=== PATIENT | female | born 1955 | race Caucasian/White ===

== ENCOUNTER 2024-01-13 06:25 | Inpatient (IN) | payer OTHER, MEDICARE ==
[2024-01-13] MEDS ORDERED: ACETAMINOPHEN INJECTION 100 ML IVPB ONE (07:34)
[2024-01-13] MEDS: ACETAMINOPHEN 1000 MG/100 ML BAG IVPB ONE (08:00)
[2024-01-13] MEDS ORDERED: morphine SULFATE 4 MG/ML VIAL ONE ×2 (08:02→09:38)
[2024-01-13] MEDS: morphine CARPU-JECT 4 MG/1 ML DISP.SYRIN IVPUSH ONE ×2 (08:05→09:56)
[2024-01-13 08:21] LABS: INR 0.99 (0.83-1.09); PROTHROMBIN TIME (PATIENT) 11.5 SEC (9.7-13.0)
[2024-01-13 08:24] LABS: ACTIVATED PTT 21.9 SECONDS (25.2-36.5)
[2024-01-13 08:32] LABS: BASO % 0.4 % (0-2.0); EOS % 0.1 % (0-4.5); HEMATOCRIT 33.9 % (32.4-45.2); HEMOGLOBIN 12.1 GM/dL (10.7-15.3); LYMPH % 15.9 % (8-40); MCHC 35.8 g/dl (32.0-36.0); MEAN CELL VOLUME 94.9 fl (80-96); MONO % 8.5 % (3.8-10.2); NEUT % 75.1 % (42.8-82.8); PLATELET COUNT 127 10^3/uL (134-434); RBC 3.57 M/mm3 (3.60-5.2); RDW 13.8 % (11.6-15.6)
[2024-01-13 08:33] LABS: CHLORIDE 84 mmol/L (98-107); POTASSIUM 4.5 mmol/L (3.5-5.1)
[2024-01-13 08:35] LABS: CALCIUM 8.8 mg/dL (8.5-10.1)
[2024-01-13 08:36] LABS: ALBUMIN 3.3 g/dl (3.4-5.0); BLOOD UREA NITROGEN 7.7 mg/dL (7-18); CO2 24 mmol/L (21-32); GLUCOSE,RANDOM 112 mg/dL (74-106); MAGNESIUM 1.3 mg/dL (1.8-2.4)
[2024-01-13 08:38] LABS: CREATININE 0.9 mg/dL (0.55-1.3)
[2024-01-13 08:39] LABS: PHOSPHOROUS 3.2 mg/dL (2.5-4.9); SGOT/AST 29 U/L (15-37); SGPT/ALT 32 U/L (13-61)
[2024-01-13 08:40] LABS: BILIRUBIN,TOTAL 1.1 mg/dL (0.2-1); TOT PROT 6.5 g/dl (6.4-8.2)
[2024-01-13 08:41] LABS: ALK PHOS 101 U/L (45-117)
[2024-01-13 08:42] LABS: N-TERMINAL BNP 284.7 pg/ml (5-125)
[2024-01-13 09:01] LABS: ANION GAP 11 mmol/L (4-13); SODIUM 119 mmol/L (136-145)
[2024-01-13] MEDS ORDERED: VANCOMYCIN 1 GRAM (PRE-DOCKED) 1,000 MG/250 ML BAG IVPB ONE (09:26)
[2024-01-13] MEDS ORDERED: PIPERACILLIN/TAZOB 4.5 GM 4.5 GM/100 ML BAG IVPB ONE (09:26)
[2024-01-13] MEDS ORDERED: DIPHTH,PERTUSS(ACELL),TET 0.5 ML DISP.SYRIN IM ONE (09:47)
[2024-01-13] MEDS ORDERED: MAGNESIUM 1GM/D5W - 1 GM/100 ML IVPB IVPB ONE (09:47)
[2024-01-13] MEDS: DIPHTH,PERTUSS(ACELL),TET 0.5 ML DISP.SYRIN IM ONE (09:57)
[2024-01-13] MEDS: PIPERACILLIN/TAZOB 4.5 GM 4.5 GM in DEXTROSE 5%-WATER 100 ML IVPB ONE (09:57)
[2024-01-13 10:17] LABS: ERYTHROCYTE SEDIMENTATION RATE 7 mm/hr (0-30)
[2024-01-13] MEDS: MAGNESIUM SULFATE IN WATER 2 GM/50 ML IVPB IVPB ONE (10:17)
[2024-01-13] MEDS: SODIUM CHLORIDE 1,000 ML IV SCH (11:26)
[2024-01-13] MEDS: VANCOMYCIN 1,000 MG in DEXTROSE 5%-WATER - 250 ML IVPB ONE (11:26)
[2024-01-13] MEDS ORDERED: CLINDAMYCIN 600MG PREMIX IVPB 600 MG/50 ML BAG IVPB ONE (13:42)
[2024-01-13 14:03] LABS: POTASSIUM 4.6 mmol/L (3.5-5.1)
[2024-01-13 14:04] LABS: CALCIUM 8.5 mg/dL (8.5-10.1)
[2024-01-13 14:05] LABS: BLOOD UREA NITROGEN 8.2 mg/dL (7-18)
[2024-01-13 14:08] LABS: CREATININE 0.8 mg/dL (0.55-1.3)
[2024-01-13] MEDS: CLINDAMYCIN 600MG PREMIX IVPB 600 MG/50 ML BAG IVPB ONE (14:33)
[2024-01-13] MEDS ORDERED: PIPERACILLIN/TAZOB 3.375 GM 3.375 GM/50 ML BAG IVPB ONE (17:56)
[2024-01-13] MEDS: PIPERACILLIN/TAZOB 3.375 GM 3.375 GM in DEXTROSE 5%-WATER - 50 ML IVPB SCH (18:02)
[2024-01-13] MEDS ORDERED: KETOROLAC TROMETHAMINE 15 MG/ML VIAL ONE (19:20)
[2024-01-13] MEDS: KETOROLAC TROMETHAMINE 15 MG/ML VIAL IVPUSH PRN (19:25)
[2024-01-13 19:45] LABS: POTASSIUM 4.1 mmol/L (3.5-5.1)
[2024-01-13 19:46] LABS: CALCIUM 8.1 mg/dL (8.5-10.1)
[2024-01-13 19:50] LABS: CREATININE 0.8 mg/dL (0.55-1.3)
[2024-01-13] MEDS: ATORVASTATIN CA 10 MG TABLET (FP) PO SCH (21:33)
[2024-01-13] MEDS: MIRTAZAPINE 15 MG TABLET (FP) PO SCH (21:33)
[2024-01-13] MEDS: ACETAMINOPHEN 500 MG TABLET (FP) PO PRN (21:34)
[2024-01-13] MEDS: HEPARIN NA (PORCINE) 5,000 UNITS/ML 1ML VIAL SQ SCH (21:34)
[2024-01-13] MEDS: METOPROLOL TARTRATE 50 MG TABLET (FP) PO SCH (21:34)
[2024-01-13] MEDS: MOMETASONE FUROATE 220 MCG/IH INHALER IH SCH (22:55)
[2024-01-13] MEDS ORDERED: VANCOMYCIN 1,000 MG in DEXTROSE 5%-WATER - 250 ML IVPB SCH (23:00)
[2024-01-13] MEDS: VANCOMYCIN/WATER FOR INJ (PEG) 1,000 MG/200 ML BAG IVPB SCH (23:35)
[2024-01-14 00:48] VITALS: BMI 42.8
[2024-01-14 09:39] LABS: BASO % 0.4 % (0-2.0); EOS % 0.6 % (0-4.5); HEMATOCRIT 31.8 % (32.4-45.2); HEMOGLOBIN 11.2 GM/dL (10.7-15.3); LYMPH % 17.8 % (8-40); MCH 33.7 pg (25.7-33.7); MCHC 35.1 g/dl (32.0-36.0); MEAN CELL VOLUME 96.1 fl (80-96); MEAN PLT VOLUME 7.9 fl (7.5-11.1); MONO % 5.2 % (3.8-10.2); PLATELET COUNT 85 10^3/uL (134-434); RBC 3.31 M/mm3 (3.60-5.2); RDW 13.7 % (11.6-15.6); WHITE BLOOD COUNT 6.5 K/mm3 (4.0-10.0)
[2024-01-14 10:03] LABS: CALCIUM 7.8 mg/dL (8.5-10.1)
[2024-01-14 10:04] LABS: BLOOD UREA NITROGEN 9.4 mg/dL (7-18)
[2024-01-14 10:06] LABS: URIC ACID 4.4 mg/dL (2.6-7.2)
[2024-01-14 10:07] LABS: CREATININE 0.8 mg/dL (0.55-1.3)
[2024-01-14] MEDS: PIPERACILLIN/TAZOB 3.375 GM 3.375 GM in DEXTROSE 5%-WATER - 50 ML IVPB SCH ×2 (10:25→14:14)
[2024-01-14] MEDS: PANTOPRAZOLE 20 MG TABLET PO SCH (10:26)
[2024-01-14] MEDS: EZETIMIBE 10 MG TABLET (FP) PO SCH (10:26)
[2024-01-14] MEDS: clonazePAM 0.25 MG ODT TABLETS SL PRN (13:00)
[2024-01-14] MEDS: HEPARIN NA (PORCINE) 5,000 UNITS/ML 1ML VIAL SQ SCH (13:45)
[2024-01-14] MEDS: VANCOMYCIN 1,000 MG in DEXTROSE 5%-WATER - 250 ML IVPB SCH (14:14)
[2024-01-14] MEDS: PATIENT'S OWN MEDICATION (NON-FORMULARY) (Olmesartan Medoxomil [Olmesartan Medoxomil] 5 MG PO SCH (14:15)
[2024-01-14] MEDS: LOSARTAN POTASSIUM 25 MG TABLET PO SCH (15:09)
[2024-01-14] MEDS: NYSTATIN POWDER 100,000 UNITS/GM - 15 GM TOPICAL POWDER TP SCH (15:50)
[2024-01-14] MEDS: CALCIUM (OYSTER SHELL) 500 MG TABLET (FP) PO SCH (15:50)
[2024-01-14] MEDS: METOPROLOL TARTRATE 50 MG TABLET (FP) PO SCH (22:03)
[2024-01-14] MEDS: ATORVASTATIN CA 10 MG TABLET (FP) PO SCH (22:04)
[2024-01-15 10:53] LABS: BASO % 0.5 % (0-2.0); EOS % 0.6 % (0-4.5); HEMATOCRIT 28.2 % (32.4-45.2); HEMOGLOBIN 9.7 GM/dL (10.7-15.3); LYMPH % 19.5 % (8-40); MCH 33.1 pg (25.7-33.7); MCHC 34.4 g/dl (32.0-36.0); MEAN CELL VOLUME 96.4 fl (80-96); MEAN PLT VOLUME 7.8 fl (7.5-11.1); NEUT % 72.4 % (42.8-82.8); PLATELET COUNT 86 10^3/uL (134-434); RBC 2.93 M/mm3 (3.60-5.2); RDW 13.5 % (11.6-15.6); WHITE BLOOD COUNT 5.1 K/mm3 (4.0-10.0)
[2024-01-15 11:04] LABS: INR 1.02 (0.83-1.09); PROTHROMBIN TIME (PATIENT) 11.8 SEC (9.7-13.0)
[2024-01-15 11:14] LABS: POTASSIUM 3.8 mmol/L (3.5-5.1)
[2024-01-15 11:21] LABS: CALCIUM 7.9 mg/dL (8.5-10.1); MAGNESIUM 1.9 mg/dL (1.8-2.4)
[2024-01-15 11:22] LABS: BLOOD UREA NITROGEN 8.6 mg/dL (7-18)
[2024-01-15 11:24] LABS: CREATININE 0.8 mg/dL (0.55-1.3)
[2024-01-15 11:26] LABS: BILIRUBIN,TOTAL 0.9 mg/dL (0.2-1); TOT PROT 5.3 g/dl (6.4-8.2)
[2024-01-15 11:28] LABS: ALBUMIN 2.6 g/dl (3.4-5.0)
[2024-01-15 11:36] LABS: CHOLESTEROL 127 mg/dL (50-200)
[2024-01-15 11:37] LABS: LDL CHOLESTEROL (ONLY SJRH) 28 mg/dL (5-100)
[2024-01-15 11:39] LABS: HDL CHOLESTEROL 91 mg/dL (40-60)
[2024-01-16 08:33] LABS: BASO % 0.6 % (0-2.0); EOS % 0.8 % (0-4.5); HEMATOCRIT 24.8 % (32.4-45.2); HEMOGLOBIN 8.7 GM/dL (10.7-15.3); LYMPH % 34.2 % (8-40); MCH 33.8 pg (25.7-33.7); MEAN CELL VOLUME 96.6 fl (80-96); MEAN PLT VOLUME 7.8 fl (7.5-11.1); MONO % 9.8 % (3.8-10.2); NEUT % 54.6 % (42.8-82.8); PLATELET COUNT 98 10^3/uL (134-434); RBC 2.57 M/mm3 (3.60-5.2); RDW 13.9 % (11.6-15.6); WHITE BLOOD COUNT 5.5 K/mm3 (4.0-10.0)
[2024-01-16 09:04] LABS: POTASSIUM 3.7 mmol/L (3.5-5.1)
[2024-01-16 09:13] LABS: ALBUMIN 2.4 g/dl (3.4-5.0); CALCIUM 7.9 mg/dL (8.5-10.1)
[2024-01-16 09:14] LABS: BLOOD UREA NITROGEN 7.1 mg/dL (7-18); MAGNESIUM 1.7 mg/dL (1.8-2.4)
[2024-01-16 09:17] LABS: CREATININE 0.8 mg/dL (0.55-1.3)
[2024-01-16 09:18] LABS: BILIRUBIN,TOTAL 0.8 mg/dL (0.2-1); TOT PROT 4.8 g/dl (6.4-8.2)
[2024-01-16] MEDS ORDERED: LIDOCAINE HCL 1%, 10 MG/ML (20ML VIAL) ONE (12:47)
[2024-01-16] MEDS: MAGNESIUM OXIDE 400 MG TABLET (FP) PO ONE (13:52)
[2024-01-16] MEDS ORDERED: PROPOFOL 20 ML ONE ×2 (16:50→17:16)
[2024-01-16] MEDS: ceFAZolin SODIUM 1 GM VIAL IVPB ONE (17:00)
[2024-01-16] MEDS ORDERED: ceFAZolin SODIUM 1 GM VIAL ONE (17:00)
[2024-01-16] MEDS ORDERED: MIDAZOLAM HCL 2 MG/2 ML SINGLE DOSE VIAL ONE (17:00)
[2024-01-16] MEDS ORDERED: ONDANSETRON 4 MG/2 ML VIAL IVPUSH PRN (17:32)
[2024-01-16] MEDS ORDERED: KETOROLAC TROMETHAMINE 30 MG/1 ML VIAL ONE (17:51)
[2024-01-16] MEDS: KETOROLAC TROMETHAMINE 30 MG/1 ML VIAL IVPUSH ONE (17:52)
[2024-01-16] MEDS ORDERED: ACETAMINOPHEN INJECTION 100 ML IVPB ONE (17:56)
[2024-01-16] MEDS: ACETAMINOPHEN 1000 MG/100 ML BAG IVPB ONE (18:08)
[2024-01-16] MEDS: LACTATED RINGERS SOLUTION 1,000 ML IV SCH (18:20)
[2024-01-16] MEDS: SODIUM CHLORIDE 1,000 ML IV SCH (18:25)
[2024-01-16] MEDS: PIPERACILLIN/TAZOB 3.375 GM 3.375 GM in DEXTROSE 5%-WATER - 50 ML IVPB SCH (19:29)
[2024-01-16] MEDS: MOMETASONE FUROATE 220 MCG/IH INHALER IH SCH (21:45)
[2024-01-16] MEDS: NYSTATIN POWDER 100,000 UNITS/GM - 15 GM TOPICAL POWDER TP SCH (21:46)
[2024-01-16] MEDS: HEPARIN NA (PORCINE) 5,000 UNITS/ML 1ML VIAL SQ SCH (21:46)
[2024-01-16] MEDS: CALCIUM (OYSTER SHELL) 500 MG TABLET (FP) PO SCH (21:46)
[2024-01-16] MEDS: ATORVASTATIN CA 10 MG TABLET (FP) PO SCH (21:46)
[2024-01-16] MEDS: KETOROLAC TROMETHAMINE 15 MG/ML VIAL IVPUSH PRN (21:57)
[2024-01-16] MEDS: clonazePAM 0.25 MG ODT TABLETS SL PRN (23:51)
[2024-01-17] MEDS: METOPROLOL TARTRATE 50 MG TABLET (FP) PO SCH (06:24)
[2024-01-17 08:14] LABS: BASO % 0.6 % (0-2.0); EOS % 1.2 % (0-4.5); HEMATOCRIT 29.6 % (32.4-45.2); HEMOGLOBIN 10.4 GM/dL (10.7-15.3); LYMPH % 31.6 % (8-40); MCH 34.5 pg (25.7-33.7); MCHC 35.2 g/dl (32.0-36.0); MEAN PLT VOLUME 7.3 fl (7.5-11.1); MONO % 9.4 % (3.8-10.2); NEUT % 57.2 % (42.8-82.8); PLATELET COUNT 103 10^3/uL (134-434); RBC 3.02 M/mm3 (3.60-5.2); WHITE BLOOD COUNT 5.9 K/mm3 (4.0-10.0)
[2024-01-17 08:45] LABS: POTASSIUM 3.6 mmol/L (3.5-5.1)
[2024-01-17 08:48] LABS: ALBUMIN 2.9 g/dl (3.4-5.0); BLOOD UREA NITROGEN 6.4 mg/dL (7-18); CALCIUM 8.3 mg/dL (8.5-10.1); MAGNESIUM 1.8 mg/dL (1.8-2.4)
[2024-01-17 08:53] LABS: BILIRUBIN,TOTAL 0.7 mg/dL (0.2-1)
[2024-01-17] MEDS: EZETIMIBE 10 MG TABLET (FP) PO SCH (10:56)
[2024-01-17] MEDS: LOSARTAN POTASSIUM 25 MG TABLET PO SCH (10:56)
[2024-01-17] MEDS: PANTOPRAZOLE 20 MG TABLET PO SCH (10:56)
[2024-01-17] MEDS: AMINO ACIDS/PROTEIN HYDROLYS 30 ML LIQUID.PKT PO SCH (14:39)
[2024-01-17] MEDS: ACETAMINOPHEN 500 MG TABLET (FP) PO PRN (21:07)
[2024-01-17] MEDS: MOMETASONE FUROATE 220 MCG/IH INHALER IH SCH (21:18)
[2024-01-18 08:32] LABS: BASO % 0.6 % (0-2.0); EOS % 1.2 % (0-4.5); HEMATOCRIT 26.8 % (32.4-45.2); MCH 33.5 pg (25.7-33.7); MCHC 33.6 g/dl (32.0-36.0); MEAN CELL VOLUME 99.6 fl (80-96); MEAN PLT VOLUME 7.3 fl (7.5-11.1); MONO % 13.1 % (3.8-10.2); NEUT % 50.1 % (42.8-82.8); PLATELET COUNT 99 10^3/uL (134-434); RBC 2.69 M/mm3 (3.60-5.2); RDW 13.6 % (11.6-15.6)
[2024-01-18 08:48] LABS: POTASSIUM 3.6 mmol/L (3.5-5.1)
[2024-01-18 08:54] LABS: ALBUMIN 2.4 g/dl (3.4-5.0); BLOOD UREA NITROGEN 8.8 mg/dL (7-18); CALCIUM 8.2 mg/dL (8.5-10.1); MAGNESIUM 1.7 mg/dL (1.8-2.4)
[2024-01-18 08:57] LABS: CREATININE 0.8 mg/dL (0.55-1.3)
[2024-01-18 08:59] LABS: BILIRUBIN,TOTAL 0.7 mg/dL (0.2-1); TOT PROT 5.2 g/dl (6.4-8.2)
[2024-01-18] MEDS: CLOTRIMAZOLE/BETAMET DIPROP 15 GM TUBE TP SCH (12:57)
[2024-01-18] MEDS: MAGNESIUM SULFATE IN WATER 2 GM/50 ML IVPB IVPB ONE (15:10)
[2024-01-19 08:25] LABS: BASO % 0.6 % (0-2.0); EOS % 1.2 % (0-4.5); HEMATOCRIT 25.6 % (32.4-45.2); HEMOGLOBIN 8.6 GM/dL (10.7-15.3); LYMPH % 35.4 % (8-40); MCH 33.4 pg (25.7-33.7); MCHC 33.8 g/dl (32.0-36.0); MEAN CELL VOLUME 98.7 fl (80-96); MEAN PLT VOLUME 7.4 fl (7.5-11.1); MONO % 13.3 % (3.8-10.2); NEUT % 49.5 % (42.8-82.8); PLATELET COUNT 108 10^3/uL (134-434); RBC 2.59 M/mm3 (3.60-5.2); RDW 14.2 % (11.6-15.6); WHITE BLOOD COUNT 6.3 K/mm3 (4.0-10.0)
[2024-01-19 08:36] LABS: POTASSIUM 3.5 mmol/L (3.5-5.1)
[2024-01-19 08:39] LABS: CALCIUM 7.9 mg/dL (8.5-10.1)
[2024-01-19 08:40] LABS: ALBUMIN 2.3 g/dl (3.4-5.0); MAGNESIUM 1.9 mg/dL (1.8-2.4)
[2024-01-19 08:45] LABS: BILIRUBIN,TOTAL 0.7 mg/dL (0.2-1)
[2024-01-19 08:46] LABS: BLOOD UREA NITROGEN 7.9 mg/dL (7-18); CREATININE 0.7 mg/dL (0.55-1.3)
[2024-01-20 10:05] LABS: BASO % 0.6 % (0-2.0); EOS % 1.4 % (0-4.5); HEMATOCRIT 25.6 % (32.4-45.2); HEMOGLOBIN 8.8 GM/dL (10.7-15.3); LYMPH % 29.7 % (8-40); MCH 33.5 pg (25.7-33.7); MCHC 34.2 g/dl (32.0-36.0); MEAN PLT VOLUME 7.7 fl (7.5-11.1); MONO % 11.5 % (3.8-10.2); NEUT % 56.8 % (42.8-82.8); PLATELET COUNT 124 10^3/uL (134-434); RBC 2.61 M/mm3 (3.60-5.2); WHITE BLOOD COUNT 6.5 K/mm3 (4.0-10.0)
[2024-01-20 10:39] LABS: POTASSIUM 4.3 mmol/L (3.5-5.1)
[2024-01-20 10:40] LABS: CALCIUM 8.5 mg/dL (8.5-10.1)
[2024-01-20 10:41] LABS: ALBUMIN 2.3 g/dl (3.4-5.0); BLOOD UREA NITROGEN 7.8 mg/dL (7-18); MAGNESIUM 1.9 mg/dL (1.8-2.4)
[2024-01-20 10:44] LABS: CREATININE 0.6 mg/dL (0.55-1.3)
[2024-01-20 10:46] LABS: BILIRUBIN,TOTAL 0.6 mg/dL (0.2-1); TOT PROT 5.3 g/dl (6.4-8.2)
[2024-01-20] MEDS: MIRTAZAPINE 15 MG TABLET (FP) PO SCH (22:37)
[2024-01-21 08:39] LABS: BASO % 0.6 % (0-2.0); EOS % 1.2 % (0-4.5); HEMATOCRIT 26.3 % (32.4-45.2); LYMPH % 34.1 % (8-40); MCH 33.6 pg (25.7-33.7); MCHC 34.3 g/dl (32.0-36.0); MEAN CELL VOLUME 98.1 fl (80-96); MEAN PLT VOLUME 7.3 fl (7.5-11.1); MONO % 11.9 % (3.8-10.2); NEUT % 52.2 % (42.8-82.8); PLATELET COUNT 135 10^3/uL (134-434); RBC 2.68 M/mm3 (3.60-5.2); RDW 13.6 % (11.6-15.6); WHITE BLOOD COUNT 6.3 K/mm3 (4.0-10.0)
[2024-01-21 09:06] LABS: POTASSIUM 3.6 mmol/L (3.5-5.1)
[2024-01-21 09:15] LABS: CALCIUM 8.3 mg/dL (8.5-10.1)
[2024-01-21 09:16] LABS: ALBUMIN 2.1 g/dl (3.4-5.0); BLOOD UREA NITROGEN 9.2 mg/dL (7-18); MAGNESIUM 1.5 mg/dL (1.8-2.4)
[2024-01-21 09:19] LABS: CREATININE 0.6 mg/dL (0.55-1.3)
[2024-01-21 09:21] LABS: BILIRUBIN,TOTAL 0.4 mg/dL (0.2-1)
[2024-01-21] MEDS: MAGNESIUM SULFATE IN WATER 2 GM/50 ML IVPB IVPB ONE (12:38)
[2024-01-21] MEDS: MAGNESIUM OXIDE 400 MG TABLET (FP) PO ONE (15:30)
[2024-01-22 07:54] LABS: BASO % 0.7 % (0-2.0); HEMATOCRIT 26.3 % (32.4-45.2); LYMPH % 37.3 % (8-40); MCH 33.7 pg (25.7-33.7); MCHC 34.2 g/dl (32.0-36.0); MEAN CELL VOLUME 98.4 fl (80-96); MEAN PLT VOLUME 7.4 fl (7.5-11.1); MONO % 9.6 % (3.8-10.2); NEUT % 51.4 % (42.8-82.8); PLATELET COUNT 170 10^3/uL (134-434); RBC 2.67 M/mm3 (3.60-5.2); RDW 13.9 % (11.6-15.6); WHITE BLOOD COUNT 6.5 K/mm3 (4.0-10.0)
[2024-01-22 08:14] LABS: POTASSIUM 3.6 mmol/L (3.5-5.1)
[2024-01-22 08:18] LABS: CALCIUM 8.2 mg/dL (8.5-10.1)
[2024-01-22 08:20] LABS: ALBUMIN 2.2 g/dl (3.4-5.0); BLOOD UREA NITROGEN 7.4 mg/dL (7-18); MAGNESIUM 1.8 mg/dL (1.8-2.4)
[2024-01-22 08:22] LABS: BILIRUBIN,TOTAL 0.6 mg/dL (0.2-1); CREATININE 0.6 mg/dL (0.55-1.3); TOT PROT 5.3 g/dl (6.4-8.2)
[2024-01-22] MEDS: AMOX TR/POT CLAV 875MG/125MG TABLETS (FP) PO SCH (14:45)
[2024-01-23 14:19] VITALS: BP 115/58; PULSE 76; RESP 20; TEMP 98.9
== END 2024-01-23 17:40 | disposition home or self-care (01) | DRG 571 ==
LOC: JER 06:25 → JERBED 09:06 → J7W 20:03
PROVIDERS: ADMIT Internal Medicine; ATTEND Internal Medicine
PROC: 0JBN0ZZ Excision of Right Lower Leg Subcutaneous Tissue and Fascia, Open Approach (ICD-10-PCS; 2024-01-16)
PROC: 0Y9J0ZZ Drainage of Left Lower Leg, Open Approach (ICD-10-PCS; 2024-01-16)
PROC: 0Y9H0ZZ Drainage of Right Lower Leg, Open Approach (ICD-10-PCS; 2024-01-16)
PROC: 0JBP0ZZ Excision of Left Lower Leg Subcutaneous Tissue and Fascia, Open Approach (ICD-10-PCS; principal; 2024-01-16 14:30)
DX: L03.116 Cellulitis of left lower limb (principal); B37.89 Other sites of candidiasis; E87.1 Hypo-osmolality and hyponatremia; Z68.41 Body mass index [BMI] 40.0-44.9, adult; E66.01 Morbid (severe) obesity due to excess calories; L03.115 Cellulitis of right lower limb; I10 Essential (primary) hypertension; J45.909 Unspecified asthma, uncomplicated; I89.0 Lymphedema, not elsewhere classified; F41.8 Other specified anxiety disorders; E86.1 Hypovolemia; E78.5 Hyperlipidemia, unspecified; Z96.653 Presence of artificial knee joint, bilateral; E83.51 Hypocalcemia; E83.42 Hypomagnesemia; B37.9 Candidiasis, unspecified; R23.8 Other skin changes; S91.002A Unspecified open wound, left ankle, initial encounter; X58.XXXA Exposure to other specified factors, initial encounter; Y93.89 Activity, other specified; Y92.89 Other specified places as the place of occurrence of the external cause; Y99.8 Other external cause status; F98.8 Other specified behavioral and emotional disorders with onset usually occurring in childhood and adolescence
CPT/HCPCS: 0241U-QW; 36415; 71045-TC-FY; 73701-TC-RT; 80048; 80053; 80061; 82533; 83605; 83735; 83880; 83930; 83935; 84100; 84443; 84484; 84550; 85025; 85610; 85651; 85730; 86140; 86850; 86900; 86901; 87040; 87070; 87186; 87205; 90715; 93005; 93010; 93970-TC; 94010; 94760; 97116-GP; 97162-GP; 99285-25; J0131; J1644; Q9967